=== PATIENT | female | born 1935 | race Caucasian/White ===

== ENCOUNTER 2017-07-06 19:08 | Emergency (ER) | payer MEDICARE ==
[~2017-07-06] VITALS: Ht 162.5 cm; Wt 68.0 kg
[~2017-07-06 19:08] MED LIST: TYLENOL160 MG/5 M PO
== END 2017-07-06 21:13 | disposition home or self-care (01) ==
LOC: ED 19:08
DX: S01.81XA Laceration without foreign body of other part of head, initial encounter (principal); Z90.710 Acquired absence of both cervix and uterus; Z79.01 Long term (current) use of anticoagulants; W01.198A Fall on same level from slipping, tripping and stumbling with subsequent striking against other object, initial encounter; Y93.01 Activity, walking, marching and hiking; Y92.009 Unspecified place in unspecified non-institutional (private) residence as the place of occurrence of the external cause; Y99.9 Unspecified external cause status

== ENCOUNTER 2020-07-29 14:14 | Inpatient (IN) | payer MEDICARE, OTHER ==
[~2020-07-29] VITALS: Ht 162.5 cm; Wt 48.8 kg
[2020-07-29 14:17] VITALS: BP 185/70
[2020-07-29 14:47] LABS: BASO # 0.1 10*3/uL (0.0-0.1); BASO % 0.8 % (0.0-1.0); EOS # 0.2 10*3/uL (0.0-0.4); EOS % 1.9 % (1.0-4.0); HEMATOCRIT 34.5 % (37.0-47.0); LYMPH # 2.7 10*3/uL (1.3-4.4); LYMPH % 29.6 % (27.0-41.0); MEAN CELL VOLUME 76.3 fl (81.0-99.0); MEAN CORPUSCULAR HGB 23.2 pg (27.0-31.0); MEAN CORPUSCULAR HGB CONC 30.4 g/dl (33.0-37.0); MEAN PLATELET VOLUME 9.2 fl (9.6-12.3); MONO # 0.6 10*3/uL (0.1-1.0); MONO % 6.7 % (3.0-9.0); NEUT # 5.5 10*3/uL (2.3-7.9); NEUT % 60.8 % (47.0-73.0); PLATELET COUNT AUTOMATED 274 10*3/uL (130-400); RED BLOOD COUNT 4.52 10*6/uL (4.10-5.10); RED CELL DISTRI WIDTH 16.1 % (0-14.5); WHITE BLOOD COUNT 9.1 10*3/uL (4.8-10.8)
[2020-07-29 15:02] LABS: ALBUMIN 3.3 gm/dl (3.1-4.5); ALKALINE PHOSPHATASE 83 U/L (45-117); BUN 17 mg/dl (7-24); CHLORIDE 105 mmol/L (98-107); CREATININE 1.01 mg/dL (0.55-1.02); POTASSIUM 4.2 mmol/L (3.5-5.1); SGOT/AST 10 IU/L (3-35); SGPT/ALT 12 U/L (12-78); SODIUM 137 mmol/L (136-145); TOTAL PROTEIN 7.2 gm/dL (6.4-8.2)
[2020-07-29 16:00] VITALS: BP 180/72
[2020-07-29 16:02] LABS: BILIRUBIN Negative (Negative); BLOOD Negative (Negative); CLARITY Cloudy (Clear); COLOR Yellow (Yellow); GLUCOSE Negative (Negative); KETONE Trace (Negative); LEUKO ESTERASE 3+ (Negative); NITRITE Negative (Negative); PH 7.5 (4.5-8.0); UROBILINOGEN 0.2 E.U./dl (0.0-1.0)
[2020-07-29 16:25] LABS: BACTERIA 4+
[2020-07-29] MEDS ORDERED: CRESTOR40 M1 PO (17:36)
[2020-07-29] MEDS ORDERED: CAPTOPRIL100 MG PO (17:36)
[2020-07-29] MEDS ORDERED: METOPROLOL SUCC25 M2 PO (17:37)
[2020-07-29] MEDS ORDERED: UNITHROID88 MCG PO (17:37)
[2020-07-29] MEDS ORDERED: NORVASC5 MG PO (17:38)
[2020-07-29] MEDS ORDERED: ZETIA10 MG PO (17:39)
[2020-07-29] MEDS ORDERED: HUMALOG100 UNIT/1 SQ (17:44)
[2020-07-29] MEDS ORDERED: LANTUS SOL100 UNIT/1 SQ (17:45)
[2020-07-29 18:00] VITALS: BP 185/70
[2020-07-29 22:00] VITALS: BP 171/77
[2020-07-30 06:01] LABS: BUN 16 mg/dl (7-24); CHLORIDE 108 mmol/L (98-107); CREATININE 1.01 mg/dL (0.55-1.02); SODIUM 141 mmol/L (136-145)
[2020-07-30 06:07] LABS: BASO # 0.1 10*3/uL (0.0-0.1); BASO % 0.7 % (0.0-1.0); EOS # 0.2 10*3/uL (0.0-0.4); EOS % 2.1 % (1.0-4.0); HEMATOCRIT 32.2 % (37.0-47.0); LYMPH # 2.8 10*3/uL (1.3-4.4); LYMPH % 30.1 % (27.0-41.0); MEAN CORPUSCULAR HGB 23.4 pg (27.0-31.0); MEAN CORPUSCULAR HGB CONC 30.4 g/dl (33.0-37.0); MONO # 0.7 10*3/uL (0.1-1.0); MONO % 7.9 % (3.0-9.0); NEUT # 5.5 10*3/uL (2.3-7.9); PLATELET COUNT AUTOMATED 230 10*3/uL (130-400); RED BLOOD COUNT 4.18 10*6/uL (4.10-5.10); RED CELL DISTRI WIDTH 16.2 % (0-14.5); WHITE BLOOD COUNT 9.4 10*3/uL (4.8-10.8)
[2020-07-30 07:29] LABS: VITAMIN D, 25-HYDROXY 20.8 ng/mL (30-100)
[2020-07-30 08:00] VITALS: BP 132/56
[2020-07-30 12:00] VITALS: BP 104/46
[2020-07-30 16:00] VITALS: BP 127/47
[2020-07-30 20:00] VITALS: BP 150/62
[2020-07-31] VITALS: BP 104/47
[2020-07-31] MEDS ORDERED: PANTOPRAZOLE SO40 MG PO (02:24)
[2020-07-31] MEDS ORDERED: Lopressor25 MG PO (02:25)
[2020-07-31 08:00] VITALS: BP 135/57
[2020-07-31 12:00] VITALS: BP 136/52
[2020-07-31 16:00] VITALS: BP 139/43
[2020-07-31 20:00] VITALS: BP 128/48
[2020-08-01] VITALS: BP 140/74
[2020-08-01 07:32] LABS: BASO # 0.1 10*3/uL (0.0-0.1); BASO % 0.7 % (0.0-1.0); EOS # 0.2 10*3/uL (0.0-0.4); EOS % 2.2 % (1.0-4.0); HEMATOCRIT 32.3 % (37.0-47.0); LYMPH # 2.8 10*3/uL (1.3-4.4); LYMPH % 30.7 % (27.0-41.0); MEAN CELL VOLUME 78.2 fl (81.0-99.0); MEAN CORPUSCULAR HGB CONC 29.4 g/dl (33.0-37.0); MEAN PLATELET VOLUME 10.1 fl (9.6-12.3); MONO # 0.7 10*3/uL (0.1-1.0); MONO % 8.2 % (3.0-9.0); NEUT # 5.3 10*3/uL (2.3-7.9); PLATELET COUNT AUTOMATED 226 10*3/uL (130-400); RED BLOOD COUNT 4.13 10*6/uL (4.10-5.10); RED CELL DISTRI WIDTH 16.7 % (0-14.5); WHITE BLOOD COUNT 9.1 10*3/uL (4.8-10.8)
[2020-08-01 07:50] LABS: CREATININE 1.3 mg/dL (0.55-1.02)
[2020-08-01 08:00] VITALS: BP 128/50
[2020-08-01] MEDS ORDERED: HUMALOG100 UNIT/1 SQ (10:50)
[2020-08-01] MEDS ORDERED: PHARMASSURE V500 MCG PO (10:54)
[2020-08-01] MEDS ORDERED: VITAMIN D350 MC2 PO (10:54)
[2020-08-01 12:00] VITALS: BP 127/56
== END 2020-08-01 15:11 | DRG 689 ==
LOC: ED 14:14 → EDHOLD 17:24 → 4E 17:24
PROVIDERS: Emergency Medicine; Internal Medicine; ADMIT Family Medicine; ATTEND Family Medicine
PROC: 0HBRXZZ Excision of Toe Nail, External Approach (ICD-10-PCS; principal; 2020-07-29)
PROC: 0HBRXZZ Excision of Toe Nail, External Approach (ICD-10-PCS; 2020-07-29)
PROC: 0HBRXZZ Excision of Toe Nail, External Approach (ICD-10-PCS; 2020-07-29)
PROC: 0HBRXZZ Excision of Toe Nail, External Approach (ICD-10-PCS; 2020-07-29)
PROC: 0HBRXZZ Excision of Toe Nail, External Approach (ICD-10-PCS; 2020-07-29)
PROC: 0HBRXZZ Excision of Toe Nail, External Approach (ICD-10-PCS; 2020-07-29)
PROC: 0HBRXZZ Excision of Toe Nail, External Approach (ICD-10-PCS; 2020-07-29)
PROC: 0HBRXZZ Excision of Toe Nail, External Approach (ICD-10-PCS; 2020-07-29)
PROC: 0HBRXZZ Excision of Toe Nail, External Approach (ICD-10-PCS; 2020-07-29)
PROC: 0HBRXZZ Excision of Toe Nail, External Approach (ICD-10-PCS; 2020-07-29)
DX: N30.00 Acute cystitis without hematuria (principal); E43 Unspecified severe protein-calorie malnutrition; G93.41 Metabolic encephalopathy; D50.9 Iron deficiency anemia, unspecified; K21.9 Gastro-esophageal reflux disease without esophagitis; I10 Essential (primary) hypertension; E11.49 Type 2 diabetes mellitus with other diabetic neurological complication; E03.9 Hypothyroidism, unspecified; E78.5 Hyperlipidemia, unspecified; E87.8 Other disorders of electrolyte and fluid balance, not elsewhere classified; E53.8 Deficiency of other specified B group vitamins; E11.65 Type 2 diabetes mellitus with hyperglycemia; E83.41 Hypermagnesemia; E11.42 Type 2 diabetes mellitus with diabetic polyneuropathy; B35.1 Tinea unguium; Z20.828 Contact with and (suspected) exposure to other viral communicable diseases; I25.2 Old myocardial infarction; Z90.710 Acquired absence of both cervix and uterus; Z82.49 Family history of ischemic heart disease and other diseases of the circulatory system; Z79.4 Long term (current) use of insulin; Z79.899 Other long term (current) drug therapy

== ENCOUNTER 2020-08-01 15:39 | Emergency (ER) | payer MEDICARE, OTHER ==
[~2020-08-01] VITALS: Wt 54.4 kg
[~2020-08-01 15:39] MED LIST changes: +CAPTOPRIL100 MG PO; +CRESTOR40 M1 PO; +HUMALOG100 UNIT/1 SQ; +LANTUS SOL100 UNIT/1 SQ; +Lopressor25 MG PO; +METOPROLOL SUCC25 M2 PO; +NORVASC5 MG PO; +PANTOPRAZOLE SO40 MG PO; +PHARMASSURE V500 MCG PO; +UNITHROID88 MCG PO; +VITAMIN D350 MC2 PO; +ZETIA10 MG PO
[2020-08-01 16:57] LABS: BASO # 0.1 10*3/uL (0.0-0.1); BASO % 0.6 % (0.0-1.0); EOS # 0.1 10*3/uL (0.0-0.4); EOS % 1.3 % (1.0-4.0); HEMATOCRIT 32.6 % (37.0-47.0); LYMPH # 1.8 10*3/uL (1.3-4.4); LYMPH % 20.5 % (27.0-41.0); MEAN CELL VOLUME 78.4 fl (81.0-99.0); MEAN CORPUSCULAR HGB 23.3 pg (27.0-31.0); MEAN CORPUSCULAR HGB CONC 29.8 g/dl (33.0-37.0); MEAN PLATELET VOLUME 10.1 fl (9.6-12.3); MONO # 0.8 10*3/uL (0.1-1.0); MONO % 8.6 % (3.0-9.0); NEUT # 6.2 10*3/uL (2.3-7.9); NEUT % 68.8 % (47.0-73.0); PLATELET COUNT AUTOMATED 229 10*3/uL (130-400); RED BLOOD COUNT 4.16 10*6/uL (4.10-5.10); RED CELL DISTRI WIDTH 16.4 % (0-14.5)
[2020-08-01 17:17] LABS: ALBUMIN 2.8 gm/dl (3.1-4.5); CREATININE 1.12 mg/dL (0.55-1.02); POTASSIUM 4.4 mmol/L (3.5-5.1); TOTAL PROTEIN 6.7 gm/dL (6.4-8.2)
== END 2020-08-01 22:28 | disposition short-term general hospital (02) ==
LOC: ED 15:39
PROVIDERS: Emergency Medicine
DX: I63.9 Cerebral infarction, unspecified (principal); Z79.4 Long term (current) use of insulin; Z79.899 Other long term (current) drug therapy